=== PATIENT | female | born 1935 | race Caucasian/White ===

== ENCOUNTER 2020-10-08 23:48 | Inpatient (IN) | payer MEDICARE, MEDICAID ==
[~2020-10-08] VITALS: Ht 162.6 cm; Wt 81.6 kg
[2020-10-08 23:45] VITALS: BP 103/84
[~2020-10-08 23:48] MED LIST: ALLO300T2 PO; BENA40TA9 PO; BRIM5DRO6 EACHEYE; LEVO88TA7 MT; PRAV20TA57 MT; TICA90TA PO; TIMO5DRO32 EACHEYE; TRAV2.5D LEFTEYE
[2020-10-09] MEDS ORDERED: BISACODYL 10MG SUPP PR PRN (01:30)
[2020-10-09] MEDS ORDERED: ACETAMINOPHEN 325MG TABLET PO PRN ×2 (01:30→09:00)
[2020-10-09] MEDS ORDERED: BISACODYL 5MG TABLET PO PRN (01:30)
[2020-10-09] MEDS ORDERED: TRAMADOL 50MG TABLET PO PRN (01:30)
[2020-10-09] MEDS ORDERED: DEXTROSE 50% WATER 50ML SYRINGE IV PRN ×2 (01:30→02:00)
[2020-10-09 05:56] LABS: BASOPHILS % 0.4 % (0.0-2.0); EOSINOPHILS % 4.4 % (0.0-5.0); HEMATOCRIT. 26.1 % (36.0-48.0); HEMOGLOBIN. 8.6 g/dL (12.0-16.0); LYMPHOCYTES % 11.7 % (20.0-50.0); MEAN CORPUSCULAR HEMOGLOBIN 30.9 pg (28.0-32.0); MEAN CORPUSCULAR VOLUME 93.7 fL (81.0-99.0); MEAN PLATELET VOLUME 7.6 fl (7.4-10.4); MONOCYTES % 7.3 % (2.0-8.0); NEUTROPHILS % 76.2 % (40.0-76.0); PLATELET 245 x1000/uL (130-400); RED BLOOD CELL COUNT 2.78 mill/uL (4.2-5.4); RED CELL DISTRIBUTION WIDTH 16.9 % (11.6-14.6)
[2020-10-09 06:01] LABS: CHLORIDE 113 mEq/L (98-107)
[2020-10-09 06:26] LABS: PHOSPHORUS 2.3 mg/dL (2.5-4.9)
[2020-10-09] MEDS ORDERED: BLOOD SUGAR DIAGNOSTIC STRIP TEST SCH (06:30)
[2020-10-09] MEDS: LEVOTHYROXINE SODIUM 88MCG TABLET PO SCH (06:37)
[2020-10-09] MEDS: HYDROCODONE/APAP 7.5/325MG 1 TAB TABLET PO PRN ×2 (06:38→14:28)
[2020-10-09] MEDS: BLOOD SUGAR DIAGNOSTIC STRIP TEST SCH ×4 (06:47→21:19)
[2020-10-09 08:32] VITALS: BP 139/49
[2020-10-09] MEDS ORDERED: BISACODYL 5MG TABLET PO SCH (09:00)
[2020-10-09] MEDS: PANTOPRAZOLE SODIUM 40 MG/VIAL IV SCH (09:00)
[2020-10-09] MEDS: POTASSIUM-SODIUM PHOSPHATE POWDER PACKET PO SCH ×2 (09:34→17:23)
[2020-10-09] MEDS: TIMOLOL MALEATE 0.5% OPHTH DROPS 5ML EACHEYE SCH ×2 (09:34→17:23)
[2020-10-09] MEDS: AMLODIPINE 10MG TABLET PO SCH (09:34)
[2020-10-09] MEDS: NYSTATIN POWDER 15GM TOP SCH ×3 (09:34→17:23)
[2020-10-09] MEDS: BRIMONIDINE 0.2% OPHTH DROPS 5ML BOTHEYE SCH ×2 (09:35→17:17)
[2020-10-09] MEDS: INSULIN LISPRO 100 UNITS/ML SUBCUT SCH ×4 (09:46→21:00)
[2020-10-09] MEDS: DOCUSATE SODIUM 100MG CAPSULE PO SCH ×2 (14:25→21:16)
[2020-10-09 20:00] VITALS: BP 113/41
[2020-10-09] MEDS ORDERED: LACTULOSE 20G/30ML UDC PO PRN (21:00)
[2020-10-09] MEDS: LACTULOSE 20G/30ML UDC PO SCH (21:16)
[2020-10-09] MEDS: LATANOPROST 0.005% OPHTH DROPS 2.5ML LEFTEYE SCH (21:16)
[2020-10-09] MEDS: CLOTRIMAZOLE 1% VAGINAL CREAM 45GM VG SCH (21:17)
[2020-10-10] MEDS: LACTULOSE 20G/30ML UDC PO SCH ×2 (00:36→04:00)
[2020-10-10] MEDS: LEVOTHYROXINE SODIUM 88MCG TABLET PO SCH (06:02)
[2020-10-10] MEDS: BLOOD SUGAR DIAGNOSTIC STRIP TEST SCH ×4 (06:02→21:52)
[2020-10-10] MEDS: INSULIN LISPRO 100 UNITS/ML SUBCUT SCH ×4 (06:03→22:37)
[2020-10-10 08:00] VITALS: BP 120/41
[2020-10-10 08:29] LABS: BASOPHILS % 0.4 % (0.0-2.0); EOSINOPHILS % 3.8 % (0.0-5.0); HEMATOCRIT. 29.1 % (36.0-48.0); HEMOGLOBIN. 9.3 g/dL (12.0-16.0); LYMPHOCYTES % 10.4 % (20.0-50.0); MEAN CORPUSCULAR HEMOGLOBIN 30.5 pg (28.0-32.0); MEAN CORPUSCULAR VOLUME 95.2 fL (81.0-99.0); MEAN PLATELET VOLUME 7.5 fl (7.4-10.4); MONOCYTES % 6.2 % (2.0-8.0); NEUTROPHILS % 79.2 % (40.0-76.0); PLATELET 262 x1000/uL (130-400); RED BLOOD CELL COUNT 3.05 mill/uL (4.2-5.4); RED CELL DISTRIBUTION WIDTH 17.5 % (11.6-14.6)
[2020-10-10 08:40] LABS: CHLORIDE 111 mEq/L (98-107)
[2020-10-10] MEDS: PANTOPRAZOLE SODIUM 40 MG/VIAL IV SCH (08:45)
[2020-10-10] MEDS: POTASSIUM-SODIUM PHOSPHATE POWDER PACKET PO SCH (08:45)
[2020-10-10] MEDS: AMLODIPINE 10MG TABLET PO SCH (08:45)
[2020-10-10] MEDS: DOCUSATE SODIUM 100MG CAPSULE PO SCH ×2 (08:46→17:00)
[2020-10-10 08:51] LABS: PHOSPHORUS 2.9 mg/dL (2.5-4.9)
[2020-10-10] MEDS: BRIMONIDINE 0.2% OPHTH DROPS 5ML BOTHEYE SCH ×2 (08:52→18:23)
[2020-10-10] MEDS: TIMOLOL MALEATE 0.5% OPHTH DROPS 5ML EACHEYE SCH ×2 (08:52→18:24)
[2020-10-10] MEDS: NYSTATIN POWDER 15GM TOP SCH ×3 (08:53→18:21)
[2020-10-10] MEDS ORDERED: ASPIRIN 81MG TABLET PO SCH (12:00)
[2020-10-10] MEDS: TICAGRELOR 90 MG TABLET PO SCH (15:11)
[2020-10-10] MEDS: HYDROCODONE/APAP 7.5/325MG 1 TAB TABLET PO PRN (15:20)
[2020-10-10] MEDS ORDERED: SODIUM POLYSTYRENE SULFONATE 15 G/60 ML BOT PO NR (16:00)
[2020-10-10 20:00] VITALS: BP 135/81
[2020-10-10] MEDS: LATANOPROST 0.005% OPHTH DROPS 2.5ML LEFTEYE SCH (21:52)
[2020-10-10] MEDS: CLOTRIMAZOLE 1% VAGINAL CREAM 45GM VG SCH (21:52)
[2020-10-11] MEDS: HYDROCODONE/APAP 7.5/325MG 1 TAB TABLET PO PRN ×2 (01:11→16:46)
[2020-10-11] MEDS: LEVOTHYROXINE SODIUM 88MCG TABLET PO SCH (06:05)
[2020-10-11] MEDS: INSULIN LISPRO 100 UNITS/ML SUBCUT SCH ×4 (06:05→21:37)
[2020-10-11] MEDS: BLOOD SUGAR DIAGNOSTIC STRIP TEST SCH ×4 (06:05→21:21)
[2020-10-11 08:09] VITALS: BP 139/73
[2020-10-11] MEDS: DOCUSATE SODIUM 100MG CAPSULE PO SCH ×2 (08:37→16:46)
[2020-10-11] MEDS: AMLODIPINE 10MG TABLET PO SCH (08:38)
[2020-10-11] MEDS: TICAGRELOR 90 MG TABLET PO SCH (08:38)
[2020-10-11] MEDS: FAMOTIDINE 20MG TABLET PO SCH (08:38)
[2020-10-11] MEDS: BRIMONIDINE 0.2% OPHTH DROPS 5ML BOTHEYE SCH ×2 (08:40→16:49)
[2020-10-11] MEDS: NYSTATIN POWDER 15GM TOP SCH ×3 (08:41→16:52)
[2020-10-11] MEDS: TIMOLOL MALEATE 0.5% OPHTH DROPS 5ML EACHEYE SCH ×2 (08:45→16:51)
[2020-10-11 09:57] LABS: BASOPHILS % 0.7 % (0.0-2.0); EOSINOPHILS % 4.2 % (0.0-5.0); HEMATOCRIT. 28.8 % (36.0-48.0); HEMOGLOBIN. 9.5 g/dL (12.0-16.0); LYMPHOCYTES % 11.6 % (20.0-50.0); MEAN CORPUSCULAR HEMOGLOBIN 31.6 pg (28.0-32.0); MEAN CORPUSCULAR VOLUME 95.8 fL (81.0-99.0); MEAN PLATELET VOLUME 7.7 fl (7.4-10.4); MONOCYTES % 4.9 % (2.0-8.0); NEUTROPHILS % 78.6 % (40.0-76.0); PLATELET 297 x1000/uL (130-400); RED BLOOD CELL COUNT 3.01 mill/uL (4.2-5.4); RED CELL DISTRIBUTION WIDTH 16.9 % (11.6-14.6)
[2020-10-11 10:13] LABS: CHLORIDE 107 mEq/L (98-107)
[2020-10-11 10:19] LABS: PHOSPHORUS 3.3 mg/dL (2.5-4.9)
[2020-10-11 16:35] VITALS: BP 123/51
[2020-10-11 21:02] VITALS: BP 125/46
[2020-10-11] MEDS: LATANOPROST 0.005% OPHTH DROPS 2.5ML LEFTEYE SCH (21:22)
[2020-10-11] MEDS: CLOTRIMAZOLE 1% VAGINAL CREAM 45GM VG SCH (22:20)
[2020-10-11] MEDS: INSULIN GLARGINE UD 100 UNITS/ML SYR SUBCUT SCH (22:46)
[2020-10-12 06:00] LABS: CHLORIDE 108 mEq/L (98-107)
[2020-10-12 06:07] LABS: PHOSPHORUS 3.1 mg/dL (2.5-4.9)
[2020-10-12 06:08] LABS: BASOPHILS % 0.6 % (0.0-2.0); EOSINOPHILS % 4.3 % (0.0-5.0); HEMATOCRIT. 25.4 % (36.0-48.0); HEMOGLOBIN. 8.2 g/dL (12.0-16.0); LYMPHOCYTES % 16.9 % (20.0-50.0); MEAN CORPUSCULAR HEMOGLOBIN 30.7 pg (28.0-32.0); MEAN PLATELET VOLUME 7.6 fl (7.4-10.4); MONOCYTES % 7.6 % (2.0-8.0); NEUTROPHILS % 70.6 % (40.0-76.0); PLATELET 281 x1000/uL (130-400); RED BLOOD CELL COUNT 2.67 mill/uL (4.2-5.4); RED CELL DISTRIBUTION WIDTH 17.3 % (11.6-14.6)
[2020-10-12] MEDS: LEVOTHYROXINE SODIUM 88MCG TABLET PO SCH (07:12)
[2020-10-12] MEDS: BLOOD SUGAR DIAGNOSTIC STRIP TEST SCH ×4 (07:15→21:50)
[2020-10-12 07:21] VITALS: BP 131/41
[2020-10-12] MEDS: DOCUSATE SODIUM 100MG CAPSULE PO SCH ×2 (08:08→16:22)
[2020-10-12] MEDS: FAMOTIDINE 20MG TABLET PO SCH (08:08)
[2020-10-12] MEDS: AMLODIPINE 10MG TABLET PO SCH (08:08)
[2020-10-12] MEDS: TICAGRELOR 90 MG TABLET PO SCH (08:08)
[2020-10-12] MEDS: ENOXAPARIN 40MG/0.4ML SYR SUBCUT SCH (08:10)
[2020-10-12] MEDS: NYSTATIN POWDER 15GM TOP SCH ×3 (08:12→16:22)
[2020-10-12] MEDS: BRIMONIDINE 0.2% OPHTH DROPS 5ML BOTHEYE SCH ×2 (08:13→16:23)
[2020-10-12] MEDS: TIMOLOL MALEATE 0.5% OPHTH DROPS 5ML EACHEYE SCH ×2 (08:14→16:23)
[2020-10-12] MEDS: INSULIN LISPRO 100 UNITS/ML SUBCUT SCH ×4 (08:18→21:00)
[2020-10-12] MEDS: INSULIN GLARGINE UD 100 UNITS/ML SYR SUBCUT SCH ×2 (11:16→21:56)
[2020-10-12 16:46] VITALS: BP 134/50
[2020-10-12] MEDS: HYDROCODONE/APAP 7.5/325MG 1 TAB TABLET PO PRN ×2 (16:50→21:58)
[2020-10-12 20:00] VITALS: BP 131/49
[2020-10-12] MEDS: LATANOPROST 0.005% OPHTH DROPS 2.5ML LEFTEYE SCH (21:53)
[2020-10-12] MEDS: CLOTRIMAZOLE 1% VAGINAL CREAM 45GM VG SCH (21:54)
[2020-10-13] MEDS: LEVOTHYROXINE SODIUM 88MCG TABLET PO SCH (06:02)
[2020-10-13] MEDS: BLOOD SUGAR DIAGNOSTIC STRIP TEST SCH ×4 (06:02→20:54)
[2020-10-13] MEDS: INSULIN LISPRO 100 UNITS/ML SUBCUT SCH ×4 (07:52→21:31)
[2020-10-13 08:00] VITALS: BP_SYST 136; BP_SYST 162; BP_DIAS 50; BP_DIAS 63
[2020-10-13] MEDS: TICAGRELOR 90 MG TABLET PO SCH (09:01)
[2020-10-13] MEDS: DOCUSATE SODIUM 100MG CAPSULE PO SCH ×2 (09:01→17:00)
[2020-10-13] MEDS: AMLODIPINE 10MG TABLET PO SCH (09:02)
[2020-10-13] MEDS: ENOXAPARIN 40MG/0.4ML SYR SUBCUT SCH (09:03)
[2020-10-13] MEDS: FAMOTIDINE 20MG TABLET PO SCH (09:07)
[2020-10-13] MEDS: BRIMONIDINE 0.2% OPHTH DROPS 5ML BOTHEYE SCH ×2 (09:08→17:12)
[2020-10-13] MEDS: TIMOLOL MALEATE 0.5% OPHTH DROPS 5ML EACHEYE SCH ×2 (09:08→17:12)
[2020-10-13] MEDS: NYSTATIN POWDER 15GM TOP SCH ×3 (09:15→17:16)
[2020-10-13] MEDS: INSULIN GLARGINE UD 100 UNITS/ML SYR SUBCUT SCH ×2 (11:24→22:00)
[2020-10-13] MEDS ORDERED: FUROSEMIDE 20MG/2ML VIAL IVP NR (14:00)
[2020-10-13] MEDS: HYDROCODONE/APAP 7.5/325MG 1 TAB TABLET PO PRN (14:37)
[2020-10-13] MEDS ORDERED: HYDROCODONE/APAP 7.5/325MG 1 TAB TABLET PO PRN (15:00)
[2020-10-13 20:00] VITALS: BP 119/45
[2020-10-13] MEDS: LATANOPROST 0.005% OPHTH DROPS 2.5ML LEFTEYE SCH (20:55)
[2020-10-13] MEDS: CLOTRIMAZOLE 1% VAGINAL CREAM 45GM VG SCH (20:55)
[2020-10-13] MEDS: TRAMADOL 50MG TABLET PO PRN (20:57)
[2020-10-14] MEDS: INSULIN LISPRO 100 UNITS/ML SUBCUT SCH ×4 (06:14→21:10)
[2020-10-14] MEDS: LEVOTHYROXINE SODIUM 88MCG TABLET PO SCH (06:14)
[2020-10-14] MEDS: BLOOD SUGAR DIAGNOSTIC STRIP TEST SCH ×4 (06:14→21:10)
[2020-10-14 08:06] VITALS: BP 137/42
[2020-10-14 08:28] LABS: BASOPHILS % 0.7 % (0.0-2.0); EOSINOPHILS % 4.5 % (0.0-5.0); HEMATOCRIT. 25.3 % (36.0-48.0); HEMOGLOBIN. 8.3 g/dL (12.0-16.0); LYMPHOCYTES % 15.1 % (20.0-50.0); MEAN CORPUSCULAR HEMOGLOBIN 31.1 pg (28.0-32.0); MEAN CORPUSCULAR VOLUME 94.6 fL (81.0-99.0); MEAN PLATELET VOLUME 7.8 fl (7.4-10.4); MONOCYTES % 9.6 % (2.0-8.0); NEUTROPHILS % 70.1 % (40.0-76.0); PLATELET 308 x1000/uL (130-400); RED BLOOD CELL COUNT 2.67 mill/uL (4.2-5.4); RED CELL DISTRIBUTION WIDTH 17.6 % (11.6-14.6)
[2020-10-14 08:38] LABS: CHLORIDE 106 mEq/L (98-107)
[2020-10-14 08:45] LABS: PHOSPHORUS 2.7 mg/dL (2.5-4.9)
[2020-10-14] MEDS: AMLODIPINE 10MG TABLET PO SCH (08:53)
[2020-10-14] MEDS: ENOXAPARIN 40MG/0.4ML SYR SUBCUT SCH (08:53)
[2020-10-14] MEDS: TICAGRELOR 90 MG TABLET PO SCH (08:53)
[2020-10-14] MEDS: DOCUSATE SODIUM 100MG CAPSULE PO SCH ×2 (08:53→18:07)
[2020-10-14] MEDS: FAMOTIDINE 20MG TABLET PO SCH (08:54)
[2020-10-14] MEDS: NYSTATIN POWDER 15GM TOP SCH ×3 (08:55→18:11)
[2020-10-14] MEDS: BRIMONIDINE 0.2% OPHTH DROPS 5ML BOTHEYE SCH ×2 (08:56→18:10)
[2020-10-14] MEDS: TIMOLOL MALEATE 0.5% OPHTH DROPS 5ML EACHEYE SCH ×2 (08:57→18:10)
[2020-10-14] MEDS: FUROSEMIDE 20MG TABLET PO SCH (10:37)
[2020-10-14 20:00] VITALS: BP 126/58
[2020-10-14] MEDS: CLOTRIMAZOLE 1% VAGINAL CREAM 45GM VG SCH (20:53)
[2020-10-14] MEDS: LATANOPROST 0.005% OPHTH DROPS 2.5ML LEFTEYE SCH (20:53)
[2020-10-15] MEDS: LEVOTHYROXINE SODIUM 88MCG TABLET PO SCH (06:07)
[2020-10-15] MEDS: INSULIN LISPRO 100 UNITS/ML SUBCUT SCH ×4 (06:07→20:44)
[2020-10-15] MEDS: BLOOD SUGAR DIAGNOSTIC STRIP TEST SCH ×4 (06:07→20:35)
[2020-10-15 06:26] LABS: CHLORIDE 106 mEq/L (98-107)
[2020-10-15 06:33] LABS: PHOSPHORUS 2.7 mg/dL (2.5-4.9)
[2020-10-15 07:01] LABS: EOSINOPHILS % 4.1 % (0.0-5.0); HEMATOCRIT. 24.9 % (36.0-48.0); HEMOGLOBIN. 8.4 g/dL (12.0-16.0); LYMPHOCYTES % 16.5 % (20.0-50.0); MEAN CORPUSCULAR HEMOGLOBIN 31.5 pg (28.0-32.0); MEAN CORPUSCULAR VOLUME 93.7 fL (81.0-99.0); MEAN PLATELET VOLUME 7.9 fl (7.4-10.4); NEUTROPHILS % 68.4 % (40.0-76.0); PLATELET 307 x1000/uL (130-400); RED BLOOD CELL COUNT 2.66 mill/uL (4.2-5.4); RED CELL DISTRIBUTION WIDTH 17.3 % (11.6-14.6)
[2020-10-15 08:00] VITALS: BP 139/40
[2020-10-15] MEDS: AMLODIPINE 10MG TABLET PO SCH (09:45)
[2020-10-15] MEDS: FUROSEMIDE 20MG TABLET PO SCH (09:45)
[2020-10-15] MEDS: FAMOTIDINE 20MG TABLET PO SCH (09:45)
[2020-10-15] MEDS: DOCUSATE SODIUM 100MG CAPSULE PO SCH ×2 (09:45→17:00)
[2020-10-15] MEDS: TICAGRELOR 90 MG TABLET PO SCH (09:45)
[2020-10-15] MEDS: ENOXAPARIN 40MG/0.4ML SYR SUBCUT SCH (09:47)
[2020-10-15] MEDS: TRAMADOL 50MG TABLET PO PRN ×2 (10:02→17:22)
[2020-10-15] MEDS: BRIMONIDINE 0.2% OPHTH DROPS 5ML BOTHEYE SCH ×2 (10:03→18:22)
[2020-10-15] MEDS: NYSTATIN POWDER 15GM TOP SCH ×3 (10:03→18:20)
[2020-10-15] MEDS: TIMOLOL MALEATE 0.5% OPHTH DROPS 5ML EACHEYE SCH ×2 (10:09→18:22)
[2020-10-15 20:00] VITALS: BP 86/60
[2020-10-15 20:15] VITALS: BP 133/39
[2020-10-15] MEDS: LATANOPROST 0.005% OPHTH DROPS 2.5ML LEFTEYE SCH (20:36)
[2020-10-15] MEDS: CLOTRIMAZOLE 1% VAGINAL CREAM 45GM VG SCH (20:46)
[2020-10-16] MEDS: LEVOTHYROXINE SODIUM 88MCG TABLET PO SCH (05:56)
[2020-10-16] MEDS: BLOOD SUGAR DIAGNOSTIC STRIP TEST SCH ×4 (05:56→20:46)
[2020-10-16 07:14] LABS: BASOPHILS % 0.6 % (0.0-2.0); EOSINOPHILS % 4.4 % (0.0-5.0); HEMOGLOBIN. 8.6 g/dL (12.0-16.0); LYMPHOCYTES % 14.9 % (20.0-50.0); MEAN CORPUSCULAR HEMOGLOBIN 31.2 pg (28.0-32.0); MEAN CORPUSCULAR VOLUME 94.6 fL (81.0-99.0); MEAN PLATELET VOLUME 7.7 fl (7.4-10.4); MONOCYTES % 8.6 % (2.0-8.0); NEUTROPHILS % 71.5 % (40.0-76.0); PLATELET 327 x1000/uL (130-400); RED BLOOD CELL COUNT 2.75 mill/uL (4.2-5.4); RED CELL DISTRIBUTION WIDTH 17.8 % (11.6-14.6)
[2020-10-16 07:48] LABS: CHLORIDE 105 mEq/L (98-107)
[2020-10-16 07:55] LABS: PHOSPHORUS 2.9 mg/dL (2.5-4.9)
[2020-10-16 08:00] VITALS: BP 134/41
[2020-10-16] MEDS: FUROSEMIDE 20MG TABLET PO SCH (08:42)
[2020-10-16] MEDS: TICAGRELOR 90 MG TABLET PO SCH (08:42)
[2020-10-16] MEDS: FAMOTIDINE 20MG TABLET PO SCH (08:42)
[2020-10-16] MEDS: AMLODIPINE 10MG TABLET PO SCH (08:43)
[2020-10-16] MEDS: BRIMONIDINE 0.2% OPHTH DROPS 5ML BOTHEYE SCH ×2 (08:43→17:26)
[2020-10-16] MEDS: TIMOLOL MALEATE 0.5% OPHTH DROPS 5ML EACHEYE SCH ×2 (08:43→17:25)
[2020-10-16] MEDS: INSULIN LISPRO 100 UNITS/ML SUBCUT SCH ×4 (08:44→20:51)
[2020-10-16] MEDS: DOCUSATE SODIUM 100MG CAPSULE PO SCH ×2 (08:44→17:00)
[2020-10-16] MEDS: ENOXAPARIN 40MG/0.4ML SYR SUBCUT SCH (08:46)
[2020-10-16] MEDS: NYSTATIN POWDER 15GM TOP SCH ×3 (08:47→17:26)
[2020-10-16] MEDS: TRAMADOL 50MG TABLET PO PRN ×2 (13:11→20:46)
[2020-10-16 20:00] VITALS: BP 137/40
[2020-10-16] MEDS: LATANOPROST 0.005% OPHTH DROPS 2.5ML LEFTEYE SCH (20:46)
[2020-10-16] MEDS ORDERED: INSULIN GLARGINE UD 100 UNITS/ML SYR SUBCUT SCH (22:00)
[2020-10-17] MEDS: LEVOTHYROXINE SODIUM 88MCG TABLET PO SCH (06:08)
[2020-10-17] MEDS: BLOOD SUGAR DIAGNOSTIC STRIP TEST SCH ×2 (06:08→12:02)
[2020-10-17] MEDS: INSULIN LISPRO 100 UNITS/ML SUBCUT SCH ×2 (06:08→12:28)
[2020-10-17 08:00] VITALS: BP 130/41
[2020-10-17] MEDS: DOCUSATE SODIUM 100MG CAPSULE PO SCH (10:00)
[2020-10-17] MEDS: FUROSEMIDE 20MG TABLET PO SCH (10:02)
[2020-10-17] MEDS: FAMOTIDINE 20MG TABLET PO SCH (10:02)
[2020-10-17] MEDS: TICAGRELOR 90 MG TABLET PO SCH (10:02)
[2020-10-17] MEDS: AMLODIPINE 10MG TABLET PO SCH (10:02)
[2020-10-17] MEDS: NYSTATIN POWDER 15GM TOP SCH (10:03)
[2020-10-17] MEDS: BRIMONIDINE 0.2% OPHTH DROPS 5ML BOTHEYE SCH (10:03)
[2020-10-17] MEDS: ENOXAPARIN 40MG/0.4ML SYR SUBCUT SCH (10:04)
[2020-10-17] MEDS: TIMOLOL MALEATE 0.5% OPHTH DROPS 5ML EACHEYE SCH (10:04)
[2020-10-17 11:02] VITALS: BP 130/41
[2020-10-17] MEDS ORDERED: LEVO88TA7 MT (11:40)
[2020-10-17] MEDS ORDERED: BRIM5DRO6 EACHEYE (11:40)
[2020-10-17] MEDS ORDERED: TRAV2.5D LEFTEYE (11:40)
[2020-10-17] MEDS ORDERED: PRAV20TA57 MT (11:40)
[2020-10-17] MEDS ORDERED: ALLO300T2 PO (11:40)
[2020-10-17] MEDS ORDERED: BENA40TA9 PO (11:40)
[2020-10-17] MEDS ORDERED: TIMO5DRO32 EACHEYE (11:40)
[2020-10-17] MEDS ORDERED: TICA90TA PO (11:40)
[2020-10-17 12:02] VITALS: BP 138/50
[2020-10-17] MEDS: TRAMADOL 50MG TABLET PO PRN (12:02)
== END 2020-10-17 15:00 | disposition home or self-care (01) | DRG 70 ==
PROVIDERS: ADMIT Psychiatry & Neurology Neurology; ATTEND Internal Medicine
DX: G93.41 Metabolic encephalopathy (principal); E43 Unspecified severe protein-calorie malnutrition; A41.9 Sepsis, unspecified organism; R65.21 Severe sepsis with septic shock; S42.212A Unspecified displaced fracture of surgical neck of left humerus, initial encounter for closed fracture; E87.1 Hypo-osmolality and hyponatremia; N17.9 Acute kidney failure, unspecified; N39.0 Urinary tract infection, site not specified; D62 Acute posthemorrhagic anemia; E11.51 Type 2 diabetes mellitus with diabetic peripheral angiopathy without gangrene; E11.40 Type 2 diabetes mellitus with diabetic neuropathy, unspecified; E66.9 Obesity, unspecified; E87.5 Hyperkalemia; E87.8 Other disorders of electrolyte and fluid balance, not elsewhere classified; N18.9 Chronic kidney disease, unspecified; E03.9 Hypothyroidism, unspecified; E11.22 Type 2 diabetes mellitus with diabetic chronic kidney disease; E11.65 Type 2 diabetes mellitus with hyperglycemia; I13.10 Hypertensive heart and chronic kidney disease without heart failure, with stage 1 through stage 4 chronic kidney disease, or unspecified chronic kidney disease; Z60.2 Problems related to living alone; W18.39XA Other fall on same level, initial encounter; Y93.89 Activity, other specified; Z68.30 Body mass index [BMI] 30.0-30.9, adult; Y92.89 Other specified places as the place of occurrence of the external cause; Z98.62 Peripheral vascular angioplasty status; Y99.8 Other external cause status; Z71.3 Dietary counseling and surveillance; M19.019 Primary osteoarthritis, unspecified shoulder
CPT/HCPCS: 36415; 73030; 80048; 82962; 83735; 84100; 85025; 87635; 92523; 92610; 93970; 97110; 97116; 97162; 97166; 97530; 97535; A6261; C1893; C9113; J1650; J1815; J1940; U0003; J8499